=== PATIENT | male | born 1980 | race Native Hawaiian/Other Pacific Islander ===

== ENCOUNTER 2019-08-22 22:11 | Emergency (ER) | payer SELFPAY ==
[2019-08-22] MEDS ORDERED: HALOPERIDOL LACTATE 5 MG/1 ML INJ ONE (22:24)
[2019-08-22] MEDS ORDERED: LORazepam 2 MG/ML VIAL ONE (22:24)
[2019-08-22] MEDS ORDERED: LORazepam 2 MG/ML VIAL IM ONE (22:37)
[2019-08-22] MEDS ORDERED: HALOPERIDOL LACTATE 5 MG/1 ML INJ IM ONE (22:37)
[2019-08-22 23:13] LABS: Amphetamine Screen,Urine PRESUMPTIVE NEGATIVE; Benzodiazepines Screen,Urine PRESUMPTIVE NEGATIVE; Cocaine Screen,Urine PRESUMPTIVE NEGATIVE; Methadone Screen,Urine PRESUMPTIVE NEGATIVE; Opiate Screen,Urine PRESUMPTIVE NEGATIVE
[2019-08-22 23:21] LABS: Mean Corpuscular HGB Conc 36 % (32-34); Mean Corpuscular Volume 92 fl (84-94); Platelet Count 305 K/mm3 (140-440); Red Blood Count 4.42 M/mm3 (3.65-5.03); Red Cell Distribution Width 12.8 % (13.2-15.2)
[2019-08-22 23:23] LABS: Hematocrit 40.5 % (35.5-45.6); Hemoglobin 14.7 gm/dl (11.8-15.2)
[2019-08-22 23:38] LABS: BUN/Creatinine Ratio 23; Blood Urea Nitrogen 18 mg/dL (9-20); Hemolysis Index 10
[2019-08-22 23:40] LABS: Cannabinoid Screen,Urine PRESUMPTIVE POSITIVE
--- NOTE | 2019-08-22 23:47 | Emergency Department Report ---
<MARIO WYATT III Jordan - Last Filed: 08/23/19 05:44> ED General Adult HPI - General Chief complaint: Psych Stated complaint: MH EVAL Time Seen by Provider: 08/22/19 22:14 - Related Data Home Medications Medication Instructions Recorded Confirmed Last Taken No Known Home Medications [No 08/22/19 08/22/19 Unknown Reported Home Medications] Allergies Allergy/AdvReac Type Severity Reaction Status Date / Time No Known Allergies Allergy Unverified 08/22/19 22:32 ED Past Medical Hx - Medications Home Medications: Home Medications Medication Instructions Recorded Confirmed Last Taken Type No Known Home Medications [No 08/22/19 08/22/19 Unknown History Reported Home Medications] ED Course - Reevaluation(s) Reevaluation #3: Patient was signed out to me by previous physician to recheck CK level. Patient CK level diet is decreasing. Patient is cleared from medical standpoint. Patient's final disposition will come from our psychiatric and mental health team. Patient will remain in the ER as an ER hold until cleared by her psych and mental health team. 08/23/19 05:44 ED Medical Decision Making - Lab Data Result diagrams: 08/22/19 23:07 08/22/19 23:07 ED Disposition Clinical Impression: Medical clearance for psychiatric admission Disposition: [id number]/TX-[id number] PSY HOSP/PSY UNIT Is pt being admited?: No Does the pt Need Aspirin: No Condition: Stable Referrals: YUMIKO OLIVEIRAPOUND RIDGE MD [facility] [Primary Care Provider] - 3-5 Days <JOSE ELISE - Last Filed: 08/26/19 19:55> ED General Adult HPI - General PUI?: No Source: patient, police, RN notes reviewed Mode of arrival: Ambulatory Limitations: Other (Patient is psychiatrically disorganized) - History of Present Illness Initial comments: The patient is a 39-year-old gentleman who was brought to the emergency room by police department for psychiatric evaluation. Apparently, the patient has been out in the street, demonstrating nonsensical behavior, and reportedly destroyed numerous items at his house or his family's house. The patient is singing in the emergency room, and denies physical pain. He will not answer questions about homicidality or suicidality. The patient is very disorganized and psychotic, and not able to describe the qualitative nature of his symptoms, exacerbating, or relieving factors. Apparently, he was rolling around outside, and may have hit his head, although he is not sure. The precinct police captain accompanied the patient is also not sure. The patient is not accompanied by friends or family members at this time for collateral information. -: unknown Radiation: other Severity scale (0 -10): 0 Quality: other Consistency: other Improves with: other Worsens with: other Associated Symptoms: other Treatments Prior to Arrival: other ED Review of Systems ROS: Stated complaint: MH EVAL Other details as noted in HPI Comment: Unobtainable due to pts medical conditions (The patient denies physical pain) ED Past Medical Hx - Past Medical History Previous Medical History?: Yes Hx Psychiatric Treatment: Yes (bipolar, schizophrenia) - Surgical History Past Surgical History?: Yes Additional Surgical History: unknown - Social History Smoking Status: Never Smoker Substance Use Type: None ED Physical Exam - General Limitations: Other (Psychotic and disorganized) General appearance: anxious - Head Head exam: Present: atraumatic, normocephalic - Eye Eye exam: Present: normal appearance, EOMI - ENT ENT exam: Present: normal exam, normal orophraynx, mucous membranes moist, normal external ear exam - Neck Neck exam: Present: normal inspection, full ROM. Absent: tenderness, meningismus - Respiratory Respiratory exam: Present: normal lung sounds bilaterally. Absent: respiratory distress - Cardiovascular Cardiovascular Exam: Present: regular rate, normal rhythm, normal heart sounds. Absent: bradycardia, tachycardia, irregular rhythm, systolic murmur, diastolic murmur, rubs, gallop - GI/Abdominal GI/Abdominal exam: Present: soft. Absent: distended, tenderness, guarding, rebo und, rigid, pulsatile mass - Rectal Rectal exam: Present: deferred - Extremities Exam Extremities exam: Present: normal inspection, full ROM, other (2+ pulses noted in the bilateral upper and lower extremities. There is no palpable cord. negative Homans sign. Muscular compartments are soft. The pelvis is stable.). Absent: pedal edema, calf tenderness - Back Exam Back exam: Present: normal inspection, full ROM. Absent: tenderness, CVA tenderness (R), CVA tenderness (L), paraspinal tenderness, vertebral tenderness - Neurological Exam Neurological exam: Present: normal gait, other (There is no facial droop. Moving 4 extremities spontaneously. The tongue is midline. Speaking in full sentences, with illogical thought content. Detailed neurologic examination not completed secondary to acute psychosis) - Psychiatric Psychiatric exam: Present: agitated, anxious - Skin Skin exam: Present: warm, dry, intact, normal color. Absent: rash ED Course Vital Signs 08/22/19 08/23/19 08/23/19 23:25 03:01 09:15 Temperature 97.8 F 98.5 F 97.9 F Pulse Rate 97 H 80 78 Respiratory 19 18 18 Rate Blood Pressure 117/84 130/81 131/62 [Left] O2 Sat by Pulse 97 98 99 Oximetry 08/23/19 08/23/19 08/23/19 14:00 18:23 20:00 Temperature 97.3 F L 97.5 F L Pulse Rate 86 77 Respiratory 17 20 18 Rate Blood Pressure 132/70 115/82 [Left] O2 Sat by Pulse 100 99 99 Oximetry 08/23/19 08/24/19 08/24/19 20:23 02:10 19:57 Temperature 98.9 F 97.2 F L 98.3 F Pulse Rate 81 72 92 H Respiratory 18 99 H 18 Rate Blood Pressure 134/88 124/83 134/83 [Left] O2 Sat by Pulse 99 100 Oximetry 08/24/19 20:57 Temperature Pulse Rate 88 Respiratory Rate Blood Pressure [Left] O2 Sat by Pulse Oximetry - Reevaluation(s) Reevaluation #1: 08/22/19 23:46 Differential diagnosis, including but not limited to: Psychosis, medical clearance for psychiatric placement, closed head injury Assessment and plan: 39-year-old gentleman who is obviously psychotic, walking with a steady gait, with an unremarkable physical exam, has made endorsements of self harm to nursing staff, required chemical sedation with haloperidol and Ativan, laboratory studies unremarkable, physical exam unremarkable, CT scan of the brain unremarkable, pending psychiatric consultation and placement. At this moment, the patient does not appear to have an immediate medical contraindication to psychiatric admission, evaluation, consultation and placement. Reevaluation #2: 08/23/19 00:15 Laboratory studies are unremarkable, CT scan of the brain is unremarkable, with the exception of elevated creatinine kinase level. It does not meet the definition criteria for rhabdomyolysis. IV fluids ordered, repeat creatinine kinase ordered, care will be transferred to the overnight physician, Dr. Ramonita Wyatt, to follow-up on repeat creatinine kinase, and manage as appropriate. As long as this level is decreasing, we would consider the patient medically suitable for psychiatric placement, in consultation/evaluation. However, this should not impede psychiatric consultation from taking place, as management may happen in parallel. ED Medical Decision Making - Lab Data Result diagrams: 08/22/19 23:07 08/22/19 23:07 Vital Signs 08/22/19 23:25 Temperature 97.8 F Pulse Rate 97 H Respiratory 19 Rate Blood Pressure 117/84 [Left] O2 Sat by Pulse 97 Oximetry Lab Results 08/22/19 08/22/19 08/22/19 Range/Units 22:42 23:07 23:07 WBC 9.6 (4.5-11.0) K/mm3 RBC 4.42 (3.65-5.03) M/mm3 Hgb 14.7 (11.8-15.2) gm/dl Hct 40.5 (35.5-45.6) % MCV 92 (84-94) fl MCH 33 H (28-32) pg MCHC 36 H (32-34) % RDW 12.8 L (13.2-15.2) % Plt Count 305 (140-440) K/mm3 Sodium 138 (137-145) mmol/L Potassium 3.6 (3.6-5.0) mmol/L Chloride 103.2 (98-107) mmol/L Carbon Dioxide 23 (22-30) mmol/L Anion Gap 15 mmol/L BUN 18 (9-20) mg/dL Creatinine 0.8 (0.8-1.5) mg/dL Estimated GFR > 60 ml/min BUN/Creatinine Ratio 23 % Glucose 110 H (75-100) mg/dL Calcium 9.0 (8.4-10.2) mg/dL Magnesium 2.00 (1.7-2.3) mg/dL Salicylates (2.8-20.0) mg/dL Urine Opiates Screen Presumptive negative Urine Methadone Screen Presumptive negative Acetaminophen (10.0-30.0) ug/mL Ur Barbiturates Screen Presumptive negative Ur Phencyclidine Scrn Presumptive negative Ur Amphetamines Screen Presumptive negative U Benzodiazepines Scrn Presumptive negative Urine Cocaine Screen Presumptive negative U Marijuana (THC) Screen Presumptive positive Drugs of Abuse Note Disclamer Plasma/Serum Alcohol (0-0.07) % 08/22/19 08/22/19 08/22/19 Range/Units 23:07 23:07 23:07 WBC (4.5-11.0) K/mm3 RBC (3.65-5.03) M/mm3 Hgb (11.8-15.2) gm/dl Hct (35.5-45.6) % MCV (84-94) fl MCH (28-32) pg MCHC (32-34) % RDW (13.2-15.2) % Plt Count (140-440) K/mm3 Sodium (137-145) mmol/L Potassium (3.6-5.0) mmol/L Chloride (98-107) mmol/L Carbon Dioxide (22-30) mmol/L Anion Gap mmol/L BUN (9-20) mg/dL Creatinine (0.8-1.5) mg/dL Estimated GFR ml/min BUN/Creatinine Ratio % Glucose (75-100) mg/dL Calcium (8.4-10.2) mg/dL Magnesium (1.7-2.3) mg/dL Salicylates < 0.3 L (2.8-20.0) mg/dL Urine Opiates Screen Urine Methadone Screen Acetaminophen < 5.0 L (10.0-30.0) ug/mL Ur Barbiturates Screen Ur Phencyclidine Scrn Ur Amphetamines Screen U Benzodiazepines Scrn Urine Cocaine Screen U Marijuana (THC) Screen Drugs of Abuse Note Plasma/Serum Alcohol < 0.01 (0-0.07) % - Radiology Data Radiology results: report reviewed, image reviewed interpreted by me: Noncontrast CT scan of the brain appears to be negative for acute pathology Noncontrast CT scan of the brain is negative for acute disease Critical care attestation.: If time is entered above; I have spent that time in minutes in the direct care of this critically ill patient, excluding procedure time. ED Disposition Is pt being admited?: No Does the pt Need Aspirin: No
--- NOTE | 2019-08-22 23:47 | Cat Scan Report ---
CT HEAD WITHOUT CONTRAST INDICATION / CLINICAL INFORMATION: closed head injury. TECHNIQUE: All CT scans at this location are performed using CT dose reduction for ALARA by means of automated e xposure control. COMPARISON: None available. FINDINGS: HEMORRHAGE: None. EXTRA-AXIAL SPACES: Normal in size and morphology for the patient's age. VENTRICULAR SYSTEM: Normal in size and morphology for the patient's age. CEREBRAL PARENCHYMA: No significant abnormality. No acute territorial infarct. MIDLINE SHIFT OR HERNIATION: None. CEREBELLUM / BRAINSTEM: No significant abnormality. ORBITS: Normal as visualized. SOFT TISSUES of HEAD: No significant abnormality. CALVARIUM: No significant abnormality. PARANASAL SINUSES / MASTOID AIR CELLS: Normal as visualized. ADDITIONAL FINDINGS: None. IMPRESSION: 1. No acute intracranial abnormality. Signer Name: Cathleen Holguin MD Signed: 08/22/2019 11:42 PM Workstation Name: [id number]
[2019-08-23] MEDS ORDERED: SODIUM CHLORIDE 0.9% 1000 ML 2,000 ML IV ONE (00:15)
[2019-08-23] MEDS ORDERED: SODIUM CHLORIDE 0.9% 1000 ML 1,000 ML IV ONE ×2 (00:15)
[2019-08-23 03:10] LABS: Bilirubin,Urine NEG (Negative); Blood,Urine SM (Negative); Color,Urine Colorless (Yellow); Mucus,Urine FEW /HPF; Protein,Urine <15 mg/dL mg/dL (Negative); Urobilinogen,Urine < 2.0 mg/dL (<2.0); WBC,Urine < 1.0 /HPF (0.0-6.0)
[2019-08-23] MEDS ORDERED: hydrOXYzine PAMOATE 25 MG CAP PO ONE (22:34)
[2019-08-24] MEDS ORDERED: LORazepam 2 MG/ML VIAL IM ONE (02:30)
[2019-08-24] MEDS ORDERED: ZIPRASIDONE MESYLATE 20 MG VIAL IM ONE ×2 (02:30→02:31)
[2019-08-24] MEDS ORDERED: LORazepam 2 MG/ML VIAL ONE (02:31)
[2019-08-24] MEDS ORDERED: WATER FOR INJ Sterile (PF) 10 ML ONE (02:31)
[2019-08-24] MEDS ORDERED: HALOPERIDOL LACTATE 5 MG/1 ML INJ IM PRN (12:34)
[2019-08-24] MEDS ORDERED: LORazepam 2 MG/ML VIAL IM PRN (12:34)
[2019-08-24] MEDS ORDERED: traZODone 50 MG TAB PO PRN (12:34)
--- NOTE | 2019-08-24 12:34 | Consultation ---
History of Present Illness - Reason for Consult Consult date: 08/24/19 Reason for consult: Psych eval - Chief Complaint Chief complaint: Hearing voices - History of Present Psychiatric Illness Patient is a 39yo employed male with history of Schizophrenia. He presents to the ED floridly psychotic, disorganized, grandiose, hyper-jew and non-compliant with medications. He agrees to be started on medications. He denies SI/HI. 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 Onel Forbes and Minh Casiano; they will fix everything for us in 2020. Minh Oh is going to be elected forever as the President of [employer]. I see the people on the [employer] but my kicked me out because of the alien software roaches." Pt reports that he tried to, "run away from the police because the Schizophrenia came back." Pt lives with his and their four children. 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 (Unable to verify the accuracy of employment information.) Pt denies substance abuse. Pt denied SI (past or present) and replied, "I believe in Onel Andrei with all my heart." Pt denied HI (past or present) and replied, "I believe in Onel Andrei with all my heart." However, per police and triage, the pt was threatening to kill the family and was aggressive and psychotic. Pt denies AH or VH currently. However, the pt is displaying evidence of thought disorder/psychosis. The pt appears delusional speaking of Oh, Onel Andrei, aliens, bugs in the computer. Pt was brought in by police due to psychosis/altered mental status. Pt has good eye contact in a positive jovial mood but incongruent to answers of the assessment at times. Pt reported at first he carries no mental health diagnosis, but then the pt reported that he had Schizophrenia 10 years ago, "because I lost my job and was admitted in [place] 6 months because I had Schizophrenia and the comic books were coming alive, but right now I am responsible regular ." Pt is requesting prescriptions for Schizophrenia be sent to his mail. "Are you going to charge me alot because I'm not a rich person?" PAST PSYCHIATRIC HISTORY: Diagnoses: Schizophrenia Family Psychiatric History None reported or documented REVIEW OF SYSTEMS Constitutional: Negative for weight loss ENT: Negative for stridor Respiratory: Negative for cough or hemoptysis All other systems reviewed and are negative MENTAL STATUS General Appearance and Behavior: age appropriate, good eye contact, cooperative with questioning and polite Cooperation: Cooperative Psychomotor Behavior: within normal limits Mood: OK Affect and affective range: Congruent with stated mood Thought Process: Tangential Thought Content: disorganized, grandiose, hyper-jew Speech: Normal volume and Regular rate and rhythm Intellectual Functioning Average Suicidal Ideation: Denies SI Homicidal Ideation: Denies HI Impulse Control: intact Insight and Judgment: Poor insight and judgment Memory: Normal Attention: Normal Orientation: alert and oriented Diagnosis Schizoaffective disorder, Bipolar type RECOMMENDATIONS MEDICATIONS: Will start Risperidone 1mg bid and Depakote DR 500mg bid Risks, benefits and alternatives of medications discussed with the patient, questions answered and consent obtained from patient. 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 Medications and Allergies Allergies Allergy/AdvReac Type Severity Reaction Status Date / Time No Known Allergies Allergy Unverified 08/22/19 22:32 Home Medications Medication Instructions Recorded Confirmed Last Taken Type No Known Home Medications [No 08/22/19 08/22/19 Unknown History Reported Home Medications] Mental Status Exam - Vital signs Last Vital Signs Temp 97.2 F L 08/24/19 02:10 Pulse 72 08/24/19 02:10 Resp 99 H 08/24/19 02:10 BP 124/83 08/24/19 02:10 Pulse Ox 99 08/23/19 20:23 Results Result Diagrams: 08/22/19 23:07 08/22/19 23:07 Abnormal lab results 08/24/19 Range/Units 09:12 Total Creatine Kinase 680 H (55-170) units/L All other labs normal. Assessment and Plan - Psychiatric problem (1) Schizoaffective disorder, bipolar type Current Visit: Yes Status: Acute
[2019-08-24] MEDS ORDERED: DIVALPROEX DR 250 MG TAB PO SCH (13:00)
[2019-08-24] MEDS ORDERED: risperiDONE 1 MG TAB PO SCH (14:00)
[2019-08-24 20:01] VITALS: BP 134/83
== END 2019-08-24 21:15 ==
LOC: ED 22:11
DX: Z04.6 Encounter for general psychiatric examination, requested by authority (principal); F23 Brief psychotic disorder; F31.9 Bipolar disorder, unspecified
CPT/HCPCS: 36415; 70450; 80048; 80307; 82550; 83735; 85027; 96372; 99285; J1630; J2060; J3486; J7030; 80320; 81001; G0480; Q0177

== ENCOUNTER 2021-03-22 01:37 | Emergency (ER) | payer SELFPAY | END 2021-03-22 04:00 | LOC: ED 01:37 | DX: G47.9 Sleep disorder, unspecified (principal); Z53.21 Procedure and treatment not carried out due to patient leaving prior to being seen by health care provider ==